=== PATIENT | female | born 1980 | race Caucasian/White ===

== ENCOUNTER 2019-04-15 22:59 | Emergency (ER) | payer MEDICAID ==
[~2019-04-15] VITALS: Ht 170.2 cm; Wt 84.8 kg
[2019-04-15 22:59] VITALS: BP 189/91
[~2019-04-15 22:59] MED LIST: METH250T32 PO
--- NOTE | 2019-04-15 23:09 | NUR ---
PT SAMARA MCNEILL TO BED #6
--- NOTE | 2019-04-15 23:30 | NUR ---
PATIENT PRESENTS TO ED WITH C/O ANXIETY STARTED AROUND 2200 AT HOME. PER PATIENT SHE HAS BEEN ALOT OF STRESS LATELY . PT STATES DRINKING COLD WATER USUALLY HELPS CONTROL ANXIETY .PATIENT GCS 15, AAOX4, DENIES N/V/D; SKIN IS PINK/WARM/DRY; AAOX4 WITH EVEN AND STEADY GAIT; LUNGS CLEAR BL; HR EVEN AND REGULAR; PT DENIES ANY FEVER, CP, SOB, OR COUGH AT THIS TIME; PATIENT STATES PAIN OF 0/10 AT THIS TIME; VSS; PATIENT POSITIONED FOR COMFORT; HOB ELEVATED; BEDRAILS UP X2; BED DOWN. ER MD MADE AWARE OF PT STATUS.
[2019-04-15] MEDS ORDERED: LORazepam 2 MG/ML VIAL IM ONE (23:45)
[2019-04-15 23:58] VITALS: BP 178/88
--- NOTE | 2019-04-15 23:58 | NUR ---
Patient discharged with v/s stable. Written and verbal after care instructions given and explained. Patient alert, oriented and verbalized understanding of instructions. Ambulatory with steady gait. All questions addressed prior to discharge. ID band removed. Patient advised to follow up with PMD. Rx of XANAX WAS given. Patient educated on indication of medication including possible reaction and side effects. Opportunity to ask questions provided and answered. PT STATED SHE WAS "FEELING BETTER" PRIOR TO D/C NO PAIN 0/10.
== END 2019-04-15 23:58 | disposition home or self-care (01) ==
LOC: MED 22:59
DX: F41.9 Anxiety disorder, unspecified (principal); I10 Essential (primary) hypertension; Z79.899 Other long term (current) drug therapy
CPT/HCPCS: 96372; 99283; J2060

== ENCOUNTER 2019-08-07 19:37 | Emergency (ER) | payer MEDICAID ==
[~2019-08-07] VITALS: Ht 162.6 cm; Wt 86.2 kg
[2019-08-07 19:56] VITALS: BP 173/100
--- NOTE | 2019-08-07 20:17 | NUR ---
PT AMBULATED WITH SLOW STEADY GAIT TO BED #9. DAUGHTER AT BEDSIDE
--- NOTE | 2019-08-07 20:20 | NUR ---
39 Y/O FEMALE PRESENTS TO ED, C/O OF ANXIETY THAT STARTED THIS MORNING. PT STATES OF HAVING HX OF ANXIETY WORSENED THIS MORNING, DENIES TAKING ANY MEDICATIONS. NO SOB/RESPIRATORY DISTRESS NOTED. PT DENIES ANY CHEST PAIN. PT STATES HAVING TINGLIGN SENSATION ON LEFT ARM DURING ANXIETY ATTACK BUT DENIES ANY PAIN. PT STABLE. ALERT AND ORIENTED X4. ERMD AWARE. WILL CONTINUE TO MONITOR.
--- NOTE | 2019-08-07 21:14 | NUR ---
Dr. Canela examining patient.
[2019-08-07] MEDS ORDERED: LORazepam 2 MG/ML VIAL IM ONE (21:25)
[2019-08-07 21:55] VITALS: BP 173/100
--- NOTE | 2019-08-07 21:55 | NUR ---
PT DISCHARGED WITH PAPERWORK. RX XANAX. EDUCATED PT REGARDING MEDICATION AND S/E. EDUCATED PT REGARDING D/C DIAGNOSIS AND INSTRUCTIONS. PT VERBALIZED UNDERSTANDING OF TEACHING. TOLD PT TO FOLLOW UP WITH PCP AND WHEN TO RETURN TO ED. PT AT STABLE CONDITION. ALL QUESTIONS ANSWERED.
== END 2019-08-07 21:55 | disposition home or self-care (01) ==
LOC: MED 19:37
DX: F41.0 Panic disorder [episodic paroxysmal anxiety] (principal); R11.10 Vomiting, unspecified; R51 Headache; I10 Essential (primary) hypertension; Z79.899 Other long term (current) drug therapy
CPT/HCPCS: 96372; 99284; J2060

== ENCOUNTER 2020-09-01 01:23 | Emergency (ER) | payer MEDICAID ==
[~2020-09-01] VITALS: Ht 157.5 cm; Wt 85.7 kg
[2020-09-01 01:25] VITALS: BP 160/90
--- NOTE | 2020-09-01 01:28 | NUR ---
TO [facility]# 3 AMBULATORY
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
[2020-09-01 02:15] VITALS: BP 160/90
--- NOTE | 2020-09-01 02:15 | NUR ---
Patient discharged with v/s stable. Written and verbal after care instructions given and explained. Patient alert, oriented and verbalized understanding of instructions. Ambulatory with steady gait. All questions addressed prior to discharge. ID band removed. Patient advised to follow up with PMD. Rx of HYDROXYZINE given. Patient educated on indication of medication including possible reaction and side effects. Opportunity to ask questions provided and answered.
== END 2020-09-01 02:15 | disposition home or self-care (01) ==
LOC: MED 01:23
DX: F41.9 Anxiety disorder, unspecified (principal); I10 Essential (primary) hypertension; Z79.899 Other long term (current) drug therapy
CPT/HCPCS: 99283

== ENCOUNTER 2021-12-29 21:21 | Emergency (ER) | payer MEDICAID ==
[~2021-12-29] VITALS: Ht 160 cm; Wt 82.1 kg
[2021-12-29 21:31] VITALS: BP 179/103
--- NOTE | 2021-12-29 21:38 | NUR ---
pt taken bed 5
[2021-12-29] MEDS ORDERED: HYDR25CA1 PO (23:19)
--- NOTE | 2021-12-29 23:20 | NUR ---
The patient's care was reviewed and supervised by Sandy Bennett RN, RN.
[2021-12-29 23:26] VITALS: BP 159/100
== END 2021-12-29 23:26 | disposition home or self-care (01) ==
LOC: MED 21:21
DX: F43.22 Adjustment disorder with anxiety (principal)
CPT/HCPCS: 93005; 99283

== ENCOUNTER 2023-01-19 21:33 | Emergency (ER) | payer MEDICAID ==
[~2023-01-19] VITALS: Ht 160 cm; Wt 78.5 kg
[~2023-01-19 21:33] MED LIST changes: +HYDR25CA1 PO
[2023-01-19 21:46] VITALS: BP 188/117
--- NOTE | 2023-01-19 23:42 | NUR ---
Patient taken to bed 12.
[2023-01-20] MEDS ORDERED: ATA25 PO (00:04)
[2023-01-20 00:15] VITALS: BP 160/99
--- NOTE | 2023-01-20 00:17 | NUR ---
[facility] Training # [id number] C/O Anxiety x today. Patient reported, had anxiety today. Patient request to refill her medication (Atarax 25 mg Daily) PMHx: HTN, Anxiety
== END 2023-01-20 00:19 | disposition home or self-care (01) ==
LOC: MED 21:33
DX: F41.9 Anxiety disorder, unspecified (principal); I10 Essential (primary) hypertension; Z76.0 Encounter for issue of repeat prescription; Z79.899 Other long term (current) drug therapy
CPT/HCPCS: 99281; 99283